=== PATIENT | female | born 1945 | race Caucasian/White ===

== ENCOUNTER 2024-08-17 11:50 | Inpatient (IN) | payer MEDICARE, OTHER ==
[~2024-08-17] VITALS: Ht 149.9 cm; Wt 41.5 kg
[~2024-08-17 11:50] MED LIST: AMMO225L14 TOP; ATOR20TA66; CEPH250T PO; CYCL-1; DULO20CA18; FURO40TA4; GABAPENTIN PO; HYDR-4353 PO; LORA10TA7; PANT-47 PO
[2024-08-17] MEDS ORDERED: magnesium sulf-water 4G/100mL 100 ML IV PRN (17:15)
[2024-08-17] MEDS ORDERED: potassium Cl 20 mEq SR tablet PO PRN (17:15)
[2024-08-17] MEDS ORDERED: magnesium Cl slow-release 64mg tablet PO PRN (17:15)
[2024-08-17] MEDS ORDERED: potassium Cl 40MEQ/1/2NS 520ml 520 ML IV PRN (17:15)
[2024-08-17] MEDS ORDERED: acetaminophen 325mg tablet PO PRN ×2 (17:15)
[2024-08-17] MEDS ORDERED: morphine 2 MG/ML inj. syringe IV PRN (17:15)
[2024-08-17] MEDS ORDERED: magnesium sulf-water 2g/50mL 50 ML IV PRN (17:15)
[2024-08-17] MEDS: normal saline 1000ml 1,000 ML IV SCH (18:01)
[2024-08-17] MEDS: MEROPENEM 1GM/NACL 50ML IVPB 50 ML IV SCH (18:02)
[2024-08-17 18:43] LABS: BASOPHILS % (AUTO) 0.8 % (0-1); EOSINOPHILS # (AUTO) 0.1 X10'3 (0-0.9); EOSINOPHILS % (AUTO) 1.1 % (0-6); HEMATOCRIT 28.3 % (35.0-45.0); HEMOGLOBIN 9.4 g/dl (12.0-16.0); LYMPHOCYTES # (AUTO) 1.4 X10'3 (1.1-4.8); LYMPHOCYTES % (AUTO) 24.8 % (21-51); MEAN CORPUSCULAR HEMOGLOBIN 33.1 PG (27.0-31.0); MEAN CORPUSCULAR HGB CONC 33.1 g/dL (33.0-36.5); MEAN CORPUSCULAR VOLUME 99.8 FL (78-98); MEAN PLATELET VOLUME 8.5 FL (7.4-10.4); MONOCYTES # (AUTO) 0.4 X10'3 (0-0.9); MONOCYTES % (AUTO) 7.6 % (2-12); NEUTROPHILS # (AUTO) 3.6 X10'3 (1.8-7.7); NEUTROPHILS % (AUTO) 65.7 % (42-75); PLATELET COUNT 266 X10'3 (140-440); RED BLOOD COUNT 2.84 X10'6 (4.20-5.60); RED CELL DISTRIBUTION WIDTH 16.9 % (11.5-14.5); WHITE BLOOD COUNT 5.5 X10'3 (4.5-11.0)
[2024-08-17 18:48] LABS: ALBUMIN 2.9 G/DL (3.4-5.0); ANION GAP 8 (8-16); BLOOD UREA NITROGEN 9 MG/DL (7-18); BUN/CREATININE RATIO 14.3 (10.0-20.0); CALCIUM 8.1 MG/DL (8.5-10.1); CHLORIDE 105 MMOL/L (99-107); CREATININE 0.63 MG/DL (0.40-0.90); GLUCOSE 90 MG/DL (70-104); SODIUM 145 MMOL/L (135-145); TOTAL CARBON DIOXIDE 31.9 MMOL/L (24-32); eCRCL 46 ML/MIN; eGFR > 90 ML/MIN
[2024-08-17 19:12] LABS: POTASSIUM 2.5 MMOL/L (3.5-5.1)
[2024-08-17] MEDS: potassium Cl 20 mEq SR tablet PO PRN (19:25)
[2024-08-17] MEDS: heparin, porcine 5000 units/ml vial SQ SCH (19:26)
[2024-08-17] MEDS ORDERED: ALBU8HFA PO (22:59)
[2024-08-17 23:39] VITALS: BP 110/50; PULSE 78; RESP 16; TEMP 98.6; O2SAT 97
[2024-08-17 23:55] VITALS: RESP 18; O2SAT 96
[2024-08-18 05:21] LABS: BASOPHILS % (AUTO) 0.7 % (0-1); EOSINOPHILS # (AUTO) 0.1 X10'3 (0-0.9); EOSINOPHILS % (AUTO) 1.3 % (0-6); HEMATOCRIT 28.9 % (35.0-45.0); HEMOGLOBIN 9.5 g/dl (12.0-16.0); LYMPHOCYTES # (AUTO) 1.4 X10'3 (1.1-4.8); LYMPHOCYTES % (AUTO) 28.9 % (21-51); MEAN CORPUSCULAR HEMOGLOBIN 33.1 PG (27.0-31.0); MEAN CORPUSCULAR VOLUME 100.4 FL (78-98); MEAN PLATELET VOLUME 8.4 FL (7.4-10.4); MONOCYTES # (AUTO) 0.3 X10'3 (0-0.9); MONOCYTES % (AUTO) 7.4 % (2-12); NEUTROPHILS # (AUTO) 2.9 X10'3 (1.8-7.7); NEUTROPHILS % (AUTO) 61.7 % (42-75); PLATELET COUNT 275 X10'3 (140-440); RED BLOOD COUNT 2.88 X10'6 (4.20-5.60); RED CELL DISTRIBUTION WIDTH 17.6 % (11.5-14.5); WHITE BLOOD COUNT 4.7 X10'3 (4.5-11.0)
[2024-08-18 05:36] LABS: ALBUMIN 2.6 G/DL (3.4-5.0); ANION GAP 6 (8-16); BLOOD UREA NITROGEN 12 MG/DL (7-18); BUN/CREATININE RATIO 17.4 (10.0-20.0); CALCIUM 8.6 MG/DL (8.5-10.1); CHLORIDE 108 MMOL/L (99-107); CREATININE 0.69 MG/DL (0.40-0.90); GLUCOSE 84 MG/DL (70-104); POTASSIUM 4.2 MMOL/L (3.5-5.1); SODIUM 144 MMOL/L (135-145); eCRCL 42 ML/MIN; eGFR 82 ML/MIN
[2024-08-18 06:00] VITALS: BP 148/77; PULSE 77; RESP 17; TEMP 97.6; O2SAT 97
[2024-08-18 10:00] VITALS: BP 114/70; PULSE 76; RESP 19; TEMP 97.9; O2SAT 95
[2024-08-18] MEDS: HYDROcodone/acetaminophen 5mg/325mg tablet PO PRN (13:57)
[2024-08-18 18:00] VITALS: BP 136/72; PULSE 75; RESP 17; TEMP 98; O2SAT 96
[2024-08-18 20:00] VITALS: RESP 17; O2SAT 96
[2024-08-18] MEDS: ondansetron/PF 4mg/2ml inj IV PRN (21:49)
[2024-08-18] MEDS: pantoprazole 40mg Tablet.DR PO SCH (21:49)
[2024-08-18 22:00] VITALS: BP 110/63; PULSE 78; RESP 16; TEMP 97.9; O2SAT 97
[2024-08-19 04:17] LABS: BASOPHILS % (AUTO) 0.7 % (0-1); EOSINOPHILS % (AUTO) 0.9 % (0-6); HEMOGLOBIN 9.5 g/dl (12.0-16.0); LYMPHOCYTES # (AUTO) 1.2 X10'3 (1.1-4.8); LYMPHOCYTES % (AUTO) 24.6 % (21-51); MEAN CORPUSCULAR HEMOGLOBIN 32.7 PG (27.0-31.0); MEAN CORPUSCULAR HGB CONC 32.7 g/dL (33.0-36.5); MEAN CORPUSCULAR VOLUME 99.9 FL (78-98); MEAN PLATELET VOLUME 8.1 FL (7.4-10.4); MONOCYTES # (AUTO) 0.4 X10'3 (0-0.9); MONOCYTES % (AUTO) 8.7 % (2-12); NEUTROPHILS # (AUTO) 3.2 X10'3 (1.8-7.7); NEUTROPHILS % (AUTO) 65.1 % (42-75); PLATELET COUNT 269 X10'3 (140-440); RED BLOOD COUNT 2.91 X10'6 (4.20-5.60); WHITE BLOOD COUNT 4.9 X10'3 (4.5-11.0)
[2024-08-19 04:39] LABS: ALBUMIN 2.3 G/DL (3.4-5.0); ANION GAP 3 (8-16); BLOOD UREA NITROGEN 10 MG/DL (7-18); BUN/CREATININE RATIO 17.2 (10.0-20.0); CALCIUM 8.9 MG/DL (8.5-10.1); CHLORIDE 110 MMOL/L (99-107); CREATININE 0.58 MG/DL (0.40-0.90); GLUCOSE 104 MG/DL (70-104); POTASSIUM 3.7 MMOL/L (3.5-5.1); SODIUM 145 MMOL/L (135-145); TOTAL CARBON DIOXIDE 32.3 MMOL/L (24-32); eCRCL 50 ML/MIN; eGFR > 90 ML/MIN
[2024-08-19 06:00] VITALS: BP 138/64; PULSE 82; RESP 18; TEMP 98.3; O2SAT 96
[2024-08-19 10:00] VITALS: BP 121/68; PULSE 73; RESP 15; TEMP 98.9; O2SAT 99
[2024-08-19] MEDS ORDERED: POTA-206 PO (15:42)
[2024-08-19] MEDS ORDERED: FURO20TA4 PO (15:42)
[2024-08-19] MEDS ORDERED: MEROPENEM 1GM/NACL 50ML IVPB 50 ML IV SCH (20:00)
== END 2024-08-19 18:15 | disposition home or self-care (01) | DRG 690 ==
LOC: ER 11:51 → SUR 3N 17:22 → ED HOLD 17:22 → UNDOADMIN 17:22 → EDBEDREQ 21:50 → ED HOLD 23:20 → SUR 3N 23:20 → UNDODISIN 08-19 18:15
PROVIDERS: ADMIT Internal Medicine; ATTEND Internal Medicine
PROC: 05HC33Z Insertion of Infusion Device into Left Basilic Vein, Percutaneous Approach (ICD-10-PCS; principal; 2024-08-19)
PROC: B54NZZA Ultrasonography of Left Upper Extremity Veins, Guidance (ICD-10-PCS; 2024-08-19)
DX: N39.0 Urinary tract infection, site not specified (principal); Z16.24 Resistance to multiple antibiotics; I50.32 Chronic diastolic (congestive) heart failure; E44.0 Moderate protein-calorie malnutrition; Z68.1 Body mass index [BMI] 19.9 or less, adult; B96.20 Unspecified Escherichia coli [E. coli] as the cause of diseases classified elsewhere; E78.5 Hyperlipidemia, unspecified; B95.2 Enterococcus as the cause of diseases classified elsewhere; Z86.15 Personal history of latent tuberculosis infection; Z87.11 Personal history of peptic ulcer disease; Z98.84 Bariatric surgery status; Z85.3 Personal history of malignant neoplasm of breast; Z88.8 Allergy status to other drugs, medicaments and biological substances
CPT/HCPCS: 36410; 36415; 76937; 80048; 83605; 84145; 85025; 85651; 87040; 87081; 97116; 97161; 97530; 99285; C1751; G0378; J1644; J2185; J2405; J7030